=== PATIENT | male | born 1995 | race Two or more races ===

== ENCOUNTER 2021-03-14 18:17 | Emergency (ER) | payer MEDICAID ==
[~2021-03-14] VITALS: Ht 177.8 cm; Wt 114.0 kg
[2021-03-14] MEDS ORDERED: ALEVE (18:54)
[2021-03-14] MEDS ORDERED: KETOROLAC 30MG/ML VIAL IM ONE (21:15)
[2021-03-14] MEDS ORDERED: LIDOCAINE 5% PATCH TOP SCH (21:15)
[2021-03-14 22:20] VITALS: BP 115/82
== END 2021-03-14 22:30 | disposition home or self-care (01) ==
LOC: ER 18:17
DX: M54.59 Other low back pain (principal)
CPT/HCPCS: 96372; 99283; J1885